=== PATIENT | female | born 1990 | race Caucasian/White ===

== ENCOUNTER 2018-12-27 13:26 | Emergency (ER) | payer OTHER ==
[~2018-12-27] VITALS: Ht 172.7 cm; Wt 68.0 kg
[2018-12-27 13:31] VITALS: BP 120/87
--- NOTE | 2018-12-27 13:43 | NUR ---
LISA JOHNSON AT BEDSIDE FOR EVAL.
[2018-12-27] MEDS ORDERED: DIAZEPAM 5 MG TABLET ONE ×2 (14:11→14:46)
[2018-12-27] MEDS: DIAZEPAM 5 MG TABLET PO ONE ×2 (14:12→15:00)
[2018-12-27] MEDS ORDERED: KETOROLAC TROMETHAMINE INJ 30 MG/ML VIAL ONE (14:46)
[2018-12-27] MEDS: KETOROLAC TROMETHAMINE INJ 60 MG/2 ML VIAL IM ONE (15:00)
[2018-12-27 15:49] LABS: APPEARANCE,URINE Clear (CLEAR); BILIRUBIN,URINE Negative (NEGATIVE); BLOOD, URINE Negative Ery/uL (NEGATIVE); COLOR,URINE Yellow (YELLOW); KETONES,URINE Negative (NEGATIVE); LEUKOCYTE ESTERASE ,URINE Negative (NEGATIVE); NITRITE, URINE Negative (NEGATIVE); PROTEIN,URINE Negative (NEGATIVE); UGLUCOSE Negative (NEGATIVE); UROBILINOGEN,URINE 0.2 EU/dL (0.2)
--- NOTE | 2018-12-27 16:54 | NUR ---
Patient discharged to home in stable condition. Written and verbal after care instructions given. Patient verbalizes understanding of instruction.
== END 2018-12-27 16:54 | disposition home or self-care (01) ==
LOC: ER 13:32
DX: M62.838 Other muscle spasm (principal); M54.2 Cervicalgia; M45.9 Ankylosing spondylitis of unspecified sites in spine; M79.7 Fibromyalgia; F32.9 Major depressive disorder, single episode, unspecified; J45.909 Unspecified asthma, uncomplicated
CPT/HCPCS: 81001; 96372; 99283; J1885; 81000-TC

== ENCOUNTER 2019-03-30 05:31 | Emergency (ER) | payer OTHER ==
[~2019-03-30] VITALS: Ht 172.7 cm; Wt 68.0 kg
--- NOTE | 2019-03-30 07:00 | NUR ---
C/C "FLARE UP IN MY SPINE" SINCE 9AM, GABAPENTIN 300MG TAKEN AT MIDNIGHT
[2019-03-30] MEDS ORDERED: DIAZEPAM 5 MG TABLET ONE (07:18)
[2019-03-30] MEDS ORDERED: KETOROLAC TROMETHAMINE INJ 60 MG/2 ML VIAL IM ONE ×2 (07:18→07:30)
[2019-03-30] MEDS ORDERED: DIAZEPAM 5 MG TABLET PO ONE (07:30)
--- NOTE | 2019-03-30 09:06 | NUR ---
Patient discharged to home in stable condition. Written and verbal after care instructions given. Patient verbalizes understanding of instruction.
[2019-03-30 09:25] VITALS: BP 121/80
== END 2019-03-30 09:10 | disposition home or self-care (01) ==
LOC: ER 05:32
DX: M54.2 Cervicalgia (principal); M45.9 Ankylosing spondylitis of unspecified sites in spine; J45.909 Unspecified asthma, uncomplicated; M79.7 Fibromyalgia
CPT/HCPCS: 96372; 99283; J1885